=== PATIENT | male | born 1950 | race Caucasian/White ===

== ENCOUNTER 2017-08-20 19:25 | Emergency (ER) | payer MEDICARE, OTHER ==
[2017-08-20] MEDS ORDERED: Sodium Chloride 0.9% 10 ML Syringe FLUSH PRN (19:34)
[2017-08-20] MEDS ORDERED: Sodium Chloride 0.9% 500 ML IV ONE (19:34)
--- NOTE | 2017-08-20 19:45 | EDM.PDOC ---
ED HPI GENERAL MEDICAL PROBLEM - General Chief Complaint: Neurological Problem Stated Complaint: POSS HEART ISSUES Time Seen by Provider: 08/20/17 19:32 Source of Information: Reports: Patient, Family, RN Notes Reviewed - History of Present Illness INITIAL COMMENTS - FREE TEXT/NARRATIVE: 66 year old male brought in with syncope, altered mental status. He had been sitting outside on a deck with family, told his daughter he was not feelling well. He went in to their house. When she went into the house to check on him he was "slumped over, unresponsive" They were able to get him to partially awaken. He resisted calling an ambulance. They brought him here private vehicle drowsy, breathing, no complaint of chest or abd pain. No seizure activity noted. On arrival to ED drowsy, minimal response verbally first minute or 2 and than started to awaken. Weak hand grasps bilat. Denies chest or abd pain. C/O pressure type Dom[place]. Hx of Htn, CAD, prior stroke. Admits to having had a few beers this past afternoon. Head Pain Score (Numeric/FACES): 8 - Related Data Allergies Allergy/AdvReac Type Severity Reaction Status Date / Time metformin Allergy Cannot Verified 08/20/17 19:41 Remember ED ROS GENERAL - Review of Systems Review Of Systems: See Below Constitutional: Reports: Diaphoresis. Denies: Fever, Chills HEENT: Denies: Throat Pain, Vertigo Respiratory: Denies: Shortness of Breath, Wheezing, Pleuritic Chest Pain Cardiovascular: Denies: Chest Pain GI/Abdominal: Denies: Abdominal Pain, Nausea, Vomiting Musculoskeletal: Denies: Shoulder Pain, Arm Pain, Back Pain Skin: Reports: Diaphoresis (now better) Neurological: Reports: Dizziness, Headache, Trouble Speaking (due to AMS, now speech becoming clear and more normal, no aphasia), Weakness - Physical Exam Exam: See Below General Appearance: Other (altered mental status on arrival, minimally responsive for the first 2 to 3 minutes of exam) Eye Exam: Bilateral Eye: PERRL (pupils are constricted bilat. ) Ears: Normal External Exam Nose: Normal Inspection Throat/Mouth: Other (oral mucosa dry). No: Evidence of Tongue Biting Head Exam: Atraumatic Neck: Supple Respiratory/Chest: No Respiratory Distress, Lungs Clear, Normal Breath Sounds Cardiovascular: Regular Rate, Rhythm GI/Abdominal: Soft, Non-Tender Neuro Exam (Abbreviated): No Motor/Sensory Deficits, Slow to Respond, Other ( very weak grasp initially, improved on repeat exam, withdraws feet bilat to plantar scratch, toe movement down, babinski neg biltat) Extremities: No: Leg Pain, Increased Warmth, Redness Skin Exam: Warm, Dry, Normal Color, Other EKG INTERPRETATION EKG Date: 08/20/17 Rhythm: NSR [place]: Normal P-Wave: Present QRS: Normal ST-T: Elevated (slight ST elev. AVL and V5,V6) Course - Vital Signs Last Recorded V/S: Last Vital Signs Temp 97.3 F 08/20/17 19:31 Pulse 65 08/20/17 19:31 Resp 12 08/20/17 19:31 BP 138/91 H 08/20/17 19:31 Pulse Ox 91 L 08/20/17 19:31 - Orders/Labs/Meds Orders: Active Orders 24 hr Category Date Time Status EKG 12 Lead [EKG Documentation Completion] [] STAT Care 08/20/17 19:32 Active POC Glucose [Blood Glucose Check, Bedside] [] ONETIME Care 08/20/17 19:32 Active Peripheral IV Care [] . DIRECTED Care 08/20/17 19:34 Active Head wo Cont [CT] Stat Exams 08/20/17 19:33 Taken UA W/MICROSCOPIC [URIN] Stat Lab 08/20/17 21:10 Ordered Sodium Chloride 0.9% [Saline Flush] Med 08/20/17 19:34 Active 10 ml FLUSH ASDIRECTED PRN Peripheral IV Insertion Adult [OM.PC] Stat Oth 08/20/17 19:33 Ordered Medication Orders Sodium Chloride (Saline Flush) 10 ml FLUSH ASDIRECTED PRN PRN Reason: Keep Vein Open Labs: Laboratory Tests 08/20/17 08/20/17 08/20/17 Range/Units 19:29 19:30 20:06 WBC 7.09 (4.23-9.07) K/mm3 RBC 5.18 (4.63-6.08) M/mm3 Hgb 16.7 (13.7-17.5) gm/L Hct 50.0 (40.1-51.0) % MCV 96.5 H (79.0-92.2) fl MCH 32.2 (25.7-32.2) pg MCHC 33.4 (32.2-35.5) g/dl RDW Std Deviation 50.0 H (35.1-43.9) fL Plt Count 176 (163-337) K/mm3 MPV 9.7 (9.4-12.3) fl Neut % (Auto) 54.3 (34.0-67.9) % Lymph % (Auto) 31.7 (21.8-53.1) % Petroleum % (Auto) 10.3 (5.3-12.2) % Eos % (Auto) 3.1 (0.8-7.0) Baso % (Auto) 0.3 (0.1-1.2) % Neut # (Auto) 3.85 (1.78-5.38) K/mm3 Lymph # (Auto) 2.25 (1.32-3.57) K/mm3 Petroleum # (Auto) 0.73 (0.30-0.82) K/mm3 Eos # (Auto) 0.22 (0.04-0.54) K/mm3 Baso # (Auto) 0.02 (0.01-0.08) K/mm3 Sodium 138 (136-145) mEq/L Potassium 3.7 (3.5-5.1) mEq/L Chloride 102 (98-107) mEq/L Carbon Dioxide 26 (21-32) mEq/L Anion Gap 13.7 (5-15) BUN 18 (7-18) mg/dL Creatinine 1.1 (0.7-1.3) mg/dL Est Cr Clr Drug Dosing 58.81 mL/min Estimated GFR (MDRD) > 60 (>60) mL/min BUN/Creatinine Ratio 16.4 (14-18) Glucose 74 L (80-115) mg/dL POC Glucose 114 (80-115) mg/dL Calcium 8.5 (8.5-10.1) mg/dL Total Bilirubin 0.8 (0.2-1.0) mg/dL AST 10 L (15-37) U/L ALT 23 (16-63) U/L Alkaline Phosphatase 73 (46-116) U/L Troponin I < 0.017 (0.00-0.056) ng/mL Total Protein 6.9 (6.4-8.2) g/dl Albumin 3.5 (3.4-5.0) g/dl Globulin 3.4 gm/dL Albumin/Globulin Ratio 1.0 (1-2) Urine Color (Yellow) Urine Appearance (Clear) Urine pH (5.0-8.0) Ur Specific [place] (1.005-1.030) Urine Protein (Negative) Urine Glucose (UA) (Negative) Urine Ketones (Negative) Urine Occult Blood (Negative) Urine Nitrite (Negative) Urine Bilirubin (Negative) Urine Urobilinogen (0.2-1.0) Ur Leukocyte Esterase (Negative) Urine Opiates Screen (NEGATIVE) Ur Buprenorphine Scrn (NEGATIVE) Ur Oxycodone Screen (NEGATIVE) Urine Methadone Screen (NEGATIVE) Ur Propoxyphene Screen (NEGATIVE) Ur Barbiturates Screen (NEGATIVE) Ur Tricyclics Screen (NEGATIVE) Ur Phencyclidine Scrn (NEGATIVE) Ur Amphetamine Screen (NEGATIVE) U Methamphetamines Scrn (NEGATIVE) U Benzodiazepines Scrn (NEGATIVE) U Cocaine Metab Screen (NEGATIVE) U Marijuana (THC) Screen (NEGATIVE) Ethyl Alcohol 0.06 (0.00) gm% 08/20/17 08/20/17 Range/Units 21:10 21:10 WBC (4.23-9.07) K/mm3 RBC (4.63-6.08) M/mm3 Hgb (13.7-17.5) gm/L Hct (40.1-51.0) % MCV (79.0-92.2) fl MCH (25.7-32.2) pg MCHC (32.2-35.5) g/dl RDW Std Deviation (35.1-43.9) fL Plt Count (163-337) K/mm3 MPV (9.4-12.3) fl Neut % (Auto) (34.0-67.9) % Lymph % (Auto) (21.8-53.1) % Petroleum % (Auto) (5.3-12.2) % Eos % (Auto) (0.8-7.0) Baso % (Auto) (0.1-1.2) % Neut # (Auto) (1.78-5.38) K/mm3 Lymph # (Auto) (1.32-3.57) K/mm3 Petroleum # (Auto) (0.30-0.82) K/mm3 Eos # (Auto) (0.04-0.54) K/mm3 Baso # (Auto) (0.01-0.08) K/mm3 Sodium (136-145) mEq/L Potassium (3.5-5.1) mEq/L Chloride (98-107) mEq/L Carbon Dioxide (21-32) mEq/L Anion Gap (5-15) BUN (7-18) mg/dL Creatinine (0.7-1.3) mg/dL Est Cr Clr Drug Dosing mL/min Estimated GFR (MDRD) (>60) mL/min BUN/Creatinine Ratio (14-18) Glucose (80-115) mg/dL POC Glucose (80-115) mg/dL Calcium (8.5-10.1) mg/dL Total Bilirubin (0.2-1.0) mg/dL AST (15-37) U/L ALT (16-63) U/L Alkaline Phosphatase (46-116) U/L Troponin I (0.00-0.056) ng/mL Total Protein (6.4-8.2) g/dl Albumin (3.4-5.0) g/dl Globulin gm/dL Albumin/Globulin Ratio (1-2) Urine Color Yellow (Yellow) Urine Appearance Clear (Clear) Urine pH 6.5 (5.0-8.0) Ur Specific [place] 1.010 (1.005-1.030) Urine Protein Negative (Negative) Urine Glucose (UA) Negative (Negative) Urine Ketones Negative (Negative) Urine Occult Blood Negative (Negative) Urine Nitrite Negative (Negative) Urine Bilirubin Negative (Negative) Urine Urobilinogen 0.2 (0.2-1.0) Ur Leukocyte Esterase Negative (Negative) Urine Opiates Screen Presumptive positive H (NEGATIVE) Ur Buprenorphine Scrn Negative (NEGATIVE) Ur Oxycodone Screen Negative (NEGATIVE) Urine Methadone Screen Negative (NEGATIVE) Ur Propoxyphene Screen Negative (NEGATIVE) Ur Barbiturates Screen Negative (NEGATIVE) Ur Tricyclics Screen Negative (NEGATIVE) Ur Phencyclidine Scrn Negative (NEGATIVE) Ur Amphetamine Screen Negative (NEGATIVE) U Methamphetamines Scrn Negative (NEGATIVE) U Benzodiazepines Scrn Negative (NEGATIVE) U Cocaine Metab Screen Negative (NEGATIVE) U Marijuana (THC) Screen Negative (NEGATIVE) Ethyl Alcohol (0.00) gm% Meds: Medications Generic Name Dose Route Start Last Admin Trade Name Fregena PRN Reason Stop Dose Admin Sodium Chloride 10 ml 08/20/17 19:34 Saline Flush FLUSH ASDIRECTED PRN Keep Vein Open Discontinued Medications Generic Name Dose Route Start Last Admin Trade Name Fregena PRN Reason Stop Dose Admin Sodium Chloride 500 mls @ 999 mls/hr 08/20/17 19:34 Normal Saline IV 08/20/17 20:04 .BOLUS ONE - Re-Assessments/Exams Free Text/Narrative Re-Assessment/Exam: 08/20/17 21:39 Patient began has steadily become more alert over the first 5-10 minutes after arrival. Basic glucose was 114. He is insulin-dependent diabetic. Vitals were stable. Head CT did not show any acute findings. EKG did show some very mild nonspecific ST elevation lateral leads but nothing that looked superacute. He was not having chest or abdominal pain. When labs did come back his lab reported glucose was only 74. Other labs all relatively normal including a normal troponin. We did get him something to eat and drink. He is back to normal status and has been for about the last hour. [place] to go home and appropriate to let him go at this time. Discharge instructions as documented Departure - Departure Time of Disposition: 21:34 Disposition: Home, Self-Care 01 Condition: Fair Clinical Impression: Hypoglycemia Altered mental status Qualifiers: Altered mental status type: transient alteration of awareness Qualified Code(s) : R40.4 - Transient alteration of awareness - Discharge Information Referrals: PCP,Not In Area [Primary Care Provider] - Forms: ED Department Discharge Additional Instructions: Drink plenty of water to maintain hydration, eat regular meals and snacks, new current medications as prescribed, [facility] for [facility]he[facility], call for appointment, return to ED as needed if symptoms worsening in any way - My Orders Last 24 Hours: My Active Orders 08/20/17 19:32 EKG 12 Lead [EKG Documentation Completion] [] STAT POC Glucose [Blood Glucose Check, Bedside] [RC] ONETIME 08/20/17 19:33 Head wo Cont [CT] Stat Peripheral IV Insertion Adult [OM.PC] Stat 08/20/17 19:34 Peripheral IV Care [RC] . DIRECTED Sodium Chloride 0.9% [Saline Flush] 10 ml FLUSH ASDIRECTED PRN 08/20/17 21:10 UA W/MICROSCOPIC [URIN] Stat - Assessment/Plan Last 24 Hours: My Active Orders 08/20/17 19:32 EKG 12 Lead [EKG Documentation Completion] [RC] STAT POC Glucose [Blood Glucose Check, Bedside] [RC] ONETIME 08/20/17 19:33 Head wo Cont [CT] Stat Peripheral IV Insertion Adult [OM.PC] Stat 08/20/17 19:34 Peripheral IV Care [RC] . DIRECTED Sodium Chloride 0.9% [Saline Flush] 10 ml FLUSH ASDIRECTED PRN 08/20/17 21:10 UA W/MICROSCOPIC [URIN] Stat
--- NOTE | 2017-08-21 08:54 | CT ---
Head CT Technique: Multiple axial sections through the brain were obtained. Intravenous contrast was not utilized. Comparison: No prior intracranial imaging is available. Findings: Ventricles along the basal cisterns and sulci are of the convexities are mildly prominent. Atherosclerotic calcification is seen within the left vertebral vessel and within the carotid siphon. Mild areas of diminished density are noted within the periventricular white matter compatible with small vessel ischemic demyelination change. No other abnormal parenchymal densities are seen. No evidence of intracranial hemorrhage. No midline shift or mass effect is seen. Bone window settings were reviewed which show minimal mucosal thickening within the ethmoid and maxillary sinuses which is felt to be incidental. No acute calvarial abnormality is seen. Impression: 1. Mild senescent change as noted above. 2. No acute intracranial abnormality is identified. Diagnostic code #2 I agree with preliminary report from [facility], finalized at 08/20/17, 8:50 PM Central Time
== END 2017-08-20 21:45 | disposition home or self-care (01) ==
LOC: JD.ED 19:25
DX: R40.4 Transient alteration of awareness (principal); E16.2 Hypoglycemia, unspecified; Z88.8 Allergy status to other drugs, medicaments and biological substances
CPT/HCPCS: 36415; 70450; 80053; 80306; 81001; 82962; 84484; 85025; 93005; 96360; 96361; 99285; G0480; J7040; 93010; 99283-25

== ENCOUNTER 2017-10-31 12:21 | Emergency (ER) | payer MEDICARE, OTHER ==
[2017-10-31] MEDS ORDERED: Sodium Chloride 0.9% 10 ML Syringe FLUSH PRN (12:35)
[2017-10-31] MEDS ORDERED: Sodium Chloride 0.9% 1,000 ML IV SCH ×2 (12:45→15:45)
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
--- NOTE | 2017-10-31 13:42 | CT ---
Head CT Technique: Multiple axial sections through the brain were obtained. Intravenous contrast was not utilized. Comparison: Prior head CT study of 08/20/17. Findings: Ventricles along with basal cisterns and sulci over the convexities are mildly prominent. Mild diminished density is noted within the periventricular white matter compatible with small vessel ischemic demyelination change. No other abnormal parenchymal densities are seen. No evidence of intracranial hemorrhage. No midline shift or mass effect is seen. Atherosclerotic change is noted within the carotid siphon and within the left vertebral vessel. Bone window settings were reviewed which show no acute calvarial abnormality. Visualized sinuses are clear. Impression: 1. Mild senescent change which appears stable from prior head CT exam. 2. No acute intracranial abnormality is identified. Diagnostic code #2 MTDD
[2017-10-31] MEDS ORDERED: Albuterol 0.083% 2.5 MG/3 ML Neb Soln NEB ONE (14:14)
[2017-10-31] MEDS ORDERED: Insulin Regular, Human 100 Units/ML 3 ML Vial IV ONE (14:15)
[2017-10-31] MEDS ORDERED: 50% Dextrose in Water 50 ML Syringe IVPUSH ONE (14:15)
[2017-10-31] MEDS ORDERED: Calcium Gluconate 10% 1 GM/10 ML SDV IVPUSH ONE (14:15)
[2017-10-31] MEDS ORDERED: Sodium Chloride 0.9% 1,000 ML IV ONE (14:40)
[2017-10-31] MEDS ORDERED: Sodium Chloride 0.9% 1,000 ML ONE (15:39)
== END 2017-10-31 16:08 ==
LOC: JD.ED 12:21
DX: N17.9 Acute kidney failure, unspecified (principal); E87.5 Hyperkalemia; E87.1 Hypo-osmolality and hyponatremia; I10 Essential (primary) hypertension; E78.00 Pure hypercholesterolemia, unspecified; I25.2 Old myocardial infarction; E11.9 Type 2 diabetes mellitus without complications; Z79.899 Other long term (current) drug therapy; Z79.4 Long term (current) use of insulin; Z88.8 Allergy status to other drugs, medicaments and biological substances
CPT/HCPCS: 36415; 70450; 80053; 80306; 81001; 82550; 82962; 83735; 84439; 84443; 84481; 84484; 85025; 85652; 86140; 93005; 94640; 96361; 96374; 96375; 99285; G0480; J0610; J1815; J7040; J7050; J7060; 82533; 93010